=== PATIENT | female | born 1945 | race Caucasian/White ===

== ENCOUNTER → 2017-10-10 | Outpatient (CLI) | payer OTHER ==
[~2017-10-10] MED LIST: AMLODIPINE BESYL5 MG PO; ATENOLOL50 MG PO; ATORVASTATIN CA20 MG PO; LOSARTAN-HCTZ1 EAC1 PO; PROZAC20 MG PO
== END | disposition home or self-care (01) ==
DX: M16.11 Unilateral primary osteoarthritis, right hip (principal); R26.2 Difficulty in walking, not elsewhere classified; M25.551 Pain in right hip; M25.651 Stiffness of right hip, not elsewhere classified; M62.81 Muscle weakness (generalized); Z74.1 Need for assistance with personal care
CPT/HCPCS: 97150 GO; 97161 GP; 97165 GO; 97530 GP; G8978 GP; G8979 GP; G8980 GP; G8987 GO; G8988 GO; G8989 GO

== ENCOUNTER 2017-10-23 21:47 | Inpatient (IN) | payer OTHER ==
[~2017-10-23] VITALS: Ht 160 cm; Wt 86.3 kg
[~2017-10-23 21:47] MED LIST changes: +FLONASE ALLERG9.9 ML BOTH NARES; +FOLIC ACID0.4 MG PO; +HYZAAR 100-11 TABLET PO; +LIPITOR20 MG PO; -LOSARTAN-HCTZ1 EAC1 PO; +NAPROSYN500 MG PO; +SYMBICORT60 INHALAT IH; +VITAMIN B-1250 MC3 PO; +XANAX0.25 MG PO
[2017-10-24 10:13] VITALS: BP 115/69
[2017-10-24 18:15] VITALS: BP 122/68
[2017-10-24 20:14] VITALS: BP 130/62
[2017-10-24 23:52] VITALS: BP 122/76
[2017-10-25 05:23] LABS: HEMATOCRIT 29.7 % (36.0-46.0); MCV 95.5 FL (83-99)
[2017-10-25 05:24] LABS: HEMOGLOBIN 10.2 G/DL (11.9-15.5)
[2017-10-25 08:01] VITALS: BP 90/55
[2017-10-25 15:51] LABS: HEMATOCRIT 29.1 % (36.0-46.0); HEMOGLOBIN 9.9 G/DL (11.9-15.5); MCV 96.7 FL (83-99)
[2017-10-25 17:12] VITALS: BP 108/58
[2017-10-26 00:03] VITALS: BP 93/52
[2017-10-26 05:55] LABS: HEMATOCRIT 27.9 % (36.0-46.0); HEMOGLOBIN 9.5 G/DL (11.9-15.5); MCV 94.6 FL (83-99)
[2017-10-26 07:59] VITALS: BP 98/52
[2017-10-26 16:08] VITALS: BP 92/46
[2017-10-26 17:09] VITALS: BP 98/62
[2017-10-27 00:03] VITALS: BP 101/52
[2017-10-27 07:15] VITALS: BP 94/50
[2017-10-27] MEDS ORDERED: ELIQUIS2.5 MG PO (08:47)
[2017-10-27] MEDS ORDERED: ENDOCET 5-3251 EACH PO (08:47)
[2017-10-27] MEDS ORDERED: SENNA PLUS TAB1 EACH PO (08:47)
== END 2017-10-27 11:48 | DRG 470 ==
LOC: ENRESERV 21:47 → 2SOUTH 10-24 09:30 → ENRESERV 10-24 14:27 → 2SOUTH 10-24 15:24 → 3EAST 10-24 18:06
PROVIDERS: Orthopaedic Surgery
PROC: 0SR90JA Replacement of Right Hip Joint with Synthetic Substitute, Uncemented, Open Approach (ICD-10-PCS; principal; 2017-10-24)
DX: M16.11 Unilateral primary osteoarthritis, right hip (principal); I10 Essential (primary) hypertension; E78.00 Pure hypercholesterolemia, unspecified; F32.9 Major depressive disorder, single episode, unspecified; J45.909 Unspecified asthma, uncomplicated; Z87.891 Personal history of nicotine dependence
CPT/HCPCS: 71045; 85014; 85018; 94640; 94640 76; 94760; J0131; J0690; J2250; J2405; J3010; J7050; J7120